=== PATIENT | male | born 1960 | race Caucasian/White ===

== ENCOUNTER 2017-06-23 06:31 | Day surgery (SDC) | payer OTHER, BC ==
[~2017-06-23 06:31] MED LIST: Lactated Ringers 1,000 ML IV SCH; ceFAZolin 2 GM in Premix Bag 1 BAG IV SCH
[2017-06-23] MEDS ORDERED: ceFAZolin 1 GM Vial ONE ×2 (06:54→07:27)
[2017-06-23] MEDS ORDERED: Bupivacaine 0.5% 30 ML SDV ONE (06:54)
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
[2017-06-23] MEDS ORDERED: fentaNYL 250 MCG/5 ML SDV ONE (07:21)
[2017-06-23] MEDS ORDERED: Midazolam 1 MG/ML 2 ML SDV ONE (07:21)
[2017-06-23] MEDS ORDERED: Propofol 200 MG/20 ML SDV ONE (07:21)
[2017-06-23] MEDS ORDERED: Ondansetron 4 MG/2 ML SDV ONE (07:22)
[2017-06-23] MEDS ORDERED: Neostigmine Methylsulfate 1 MG/ML 5 ML Syringe ONE (07:22)
[2017-06-23] MEDS ORDERED: Dexamethasone 4 MG/ML 5 ML MDV ONE (07:22)
[2017-06-23] MEDS ORDERED: Rocuronium 10 MG/ML 10 ML Syringe ONE (07:22)
[2017-06-23] MEDS ORDERED: Acetaminophen/HYDROcodone 325-5 MG Tab PO PRN (09:21)
[2017-06-23] MEDS ORDERED: Morphine 10 MG/ML Syringe IVPUSH PRN (09:21)
--- NOTE | 2017-06-23 09:23 | PCM.OPNOTE ---
- General Post-Op/Procedure Note Date of Surgery/Procedure: 06/23/17 Operative Procedure(s): Repair left inguinal hernia with medium Bard PerFix plug and patch Pre Op Diagnosis: Reducible left inguinal hernia Post-Op Diagnosis: Same Anesthesia Technique: General ET Tube (ASA II) Primary Surgeon: Tarun Livingston Fluid Replacement, Intraop: 1,100 EBL in mLs: 10 Condition: Good Free Text/Narrative:: Dictation [id number]. CPT CODE 45916
[2017-06-23] MEDS ORDERED: Lactated Ringers 1,000 ML IV SCH (09:30)
--- NOTE | 2017-06-23 09:36 | OR ---
SURGEON: Tarun Livingston M.D. DATE OF PROCEDURE: 06/23/2017 OPERATION PERFORMED: Repair of left inguinal hernia with medium Bard PerFix plug and patch. ANESTHESIA: General endotracheal. ASA CLASSIFICATION: II. PREOPERATIVE DIAGNOSIS: Reducible left inguinal hernia. POSTOPERATIVE DIAGNOSIS: Reducible left inguinal hernia. ESTIMATED BLOOD LOSS: 10 mL. INTRAOPERATIVE FLUID REPLACEMENT: 1100 mL of crystalloid. DESCRIPTION OF PROCEDURE: The patient was taken to the operating room and placed on the operating table in the supine position. Time-out was called for appropriate identification of patient and procedure. The surgical site had been marked prior to the patient entering the operating room. Thigh-high TEDs and sequential compression boots were placed. Following satisfactory attainment of general endotracheal anesthesia, the abdomen was prepped with DuraPrep solution and sterile drapes were applied. Skin incision was marked out on the left inguinal crease and infiltrated with 10 mL of 0.5% Marcaine solution. The skin incision was made and deepened through the subcutaneous tissue obtaining hemostasis with the use of electrocautery. Dissection was carried down to the external oblique fascia which was opened in the direction of its fibers. The spermatic cord was mobilized. The hernia sac from the cord and was able to be reduced. A medium Bard plug and patch was brought to the operating table and this was soaked in 1% Ancef solution. It should be noted that the cord was encircled with a [place] drain and care was taken to preserve and protect the ilioinguinal nerve. The plug was placed into the internal ring and secured with an 0 Ethibond suture. The patch was then placed over this and the wings brought around the cord laterally. Superiorly, the patch was secured to the transversalis fascia and inferiorly to Messi ligament, transitioning to the inguinal ligament. All sutures were placed under direct vision and held with hemostats. The stitch was placed laterally through the wings to secure those. All sutures were tied down with the exception of the lateral stitch. The patient was given a Valsalva maneuver to 40 cm of water and the repair was solid. The lateral stitch was then secured with care taken not to impinge on the cord. The wound was inspected for hemostasis and no bleeding was noted. The incision and wound were irrigated with 1% Ancef solution. The cord was returned to its anatomic location. The external oblique fascia was closed with running 3-0 Polysorb. Jocelyn fascia was closed with running 3-0 Polysorb and the skin edges were reapproximated with subcuticular 4-0 Monocryl reinforced with Steri-Strips. Sterile Tegaderm pad was placed as a dressing. Sponge, needle, and instrument counts were all correct. The patient tolerated the procedure well. Following emergence from anesthesia and extubation, the patient was taken to recovery room in stable condition. ROBERT LEW /[id number]
[2017-06-23 10:54] VITALS: BP 121/84
== END 2017-06-23 11:08 | disposition home or self-care (01) ==
LOC: MW.SDS 06:31
PROVIDERS: ATTEND Surgery
PROC: 0YU60JZ Supplement Left Inguinal Region with Synthetic Substitute, Open Approach (ICD-10-PCS; principal; 2017-06-23)
DX: K40.90 Unilateral inguinal hernia, without obstruction or gangrene, not specified as recurrent (principal); I25.2 Old myocardial infarction; E78.00 Pure hypercholesterolemia, unspecified; K21.9 Gastro-esophageal reflux disease without esophagitis; Z87.01 Personal history of pneumonia (recurrent); Z95.5 Presence of coronary angioplasty implant and graft; Z98.890 Other specified postprocedural states; Z79.899 Other long term (current) drug therapy; Z79.82 Long term (current) use of aspirin
CPT/HCPCS: 49505; A9270; C1781; J0690; J1100; J2250; J2405; J3010; J7120; 00830; J2704

== ENCOUNTER 2021-05-16 11:19 | Emergency (ER) | payer BC ==
[2021-05-16] MEDS ORDERED: Bupivacaine 0.5% 10 ML SDV INJECT ONE (11:39)
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
--- NOTE | 2021-05-16 12:46 | CR ---
Indication: thumb laceration Technique: Three-views of the left thumb Comparison: No comparison Findings: Traumatic amputation of the distal tip of the left thumb with soft tissue defect. There is otherwise normal alignment. No radiopaque foreign bodies seen in the soft tissues. Dictated by Madhavi Hill MD @ 05/16/2021 12:44:[address] Madhavi Hill @ May 16 2021 12:44PM
[2021-05-16 13:49] VITALS: BP 102/71; PULSE 74
== END 2021-05-16 13:50 | disposition home or self-care (01) ==
LOC: MW.ED 11:19
DX: S68.522A Partial traumatic transphalangeal amputation of left thumb, initial encounter (principal); E78.00 Pure hypercholesterolemia, unspecified; I25.2 Old myocardial infarction; K21.9 Gastro-esophageal reflux disease without esophagitis; Z79.82 Long term (current) use of aspirin; Z79.899 Other long term (current) drug therapy; W27.0XXA Contact with workbench tool, initial encounter
CPT/HCPCS: 12002; 73140; 99283; J3490